=== PATIENT | female | born 1955 | race Caucasian/White ===

== ENCOUNTER → 2021-01-06 | Outpatient (CLI) | payer MEDICARE ==
[~2021-01-06] MED LIST: CLON0.5T PO; MIRT15TA3 PO; THYR60TA PO; VENL75CA6 PO
== END ==
LOC: LAB 12:11
PROVIDERS: ATTEND Nurse Anesthetist, Certified Registered
DX: Z01.812 Encounter for preprocedural laboratory examination (principal); H26.9 Unspecified cataract; Z20.822 Contact with and (suspected) exposure to COVID-19
CPT/HCPCS: U0003

== ENCOUNTER → 2021-01-09 | Day surgery (SDC) | payer MEDICARE ==
[~2021-01-09] MED LIST changes: +ACETAMINOPHEN 500 MG TABLET PO PRN; +BALANCED SALT IRRIG SOLN NO.2 500 ML IO ONE; +BENZONATATE 100 MG CAPSULE. PO PRN; +BRIMONIDINE 0.2% OPHTH SOLUTION 5ML BOTTLE. OD ONE; +CEFUROXIME OPHTH 4 MG/0.4 ML SYRINGE. OD ONE; +CHONDROIT-SOD-HYALURONATE KIT. OD ONE; +IBUPROFEN 200 MG TABLET PO PRN; +IPRATRPIUM/ALBUTEROL 0.5/2.5MG 3 ML NEBU. NEB PRN; +IV RINGERS SOLUTION,LACTATED 1,000 ML IV SCH; +LIDO/EPI IN BSS OPHTH 2.7 ML SYRINGE. OD ONE; +LIDOCAINE 2% JELLY 6ML IN APPLICATOR. ONE; +MIDAZOLAM HCL PF 2 MG/2 ML VIAL. IV ONE; +MIDAZOLAM HCL PF 2 MG/2 ML VIAL. ONE; +ONDANSETRON PF 4 MG/2 ML VIAL. IV PRN; +PHENYLEPHRINE 10% OPHTH SOLUTION 5ML BOTTLE. OD PRN; +POVIDONE-IODINE 5% OPHTH SOLUTION 30ML BOTTLE. OD ONE; +POVIDONE-IODINE 5% OPHTH SOLUTION 30ML BOTTLE. OD PRN; +PROPARACAINE 0.5% OPHTH SOLUTION 15ML BOTTLE. OD ONE; +PROPARACAINE 0.5% OPHTH SOLUTION 15ML BOTTLE. OD PRN; +prednisoLONE ACETATE 1% OPHTH SUSPENSION 5ML BOTTLE. OD ONE
[2021-01-09] MEDS: PHENYLEPHRINE 2.5% OPHTH SOLUTION 2ML BOTTLE. OD SCH ×3 (14:45→14:56)
[2021-01-09] MEDS: TROPICAMIDE 1% OPHTH SOLUTION 15ML BOTTLE. OD SCH ×3 (14:45→14:56)
[2021-01-09] MEDS: TOBRAMYCIN 0.3% OPHTH SOLUTION 5ML BOTTLE. OD SCH ×2 (14:45→14:49)
[2021-01-09] MEDS: KETOROLAC TROMETHAMINE 0.5% OPHTH SOLUTION BOTTLE. OD SCH ×2 (14:45→14:49)
--- NOTE | 2021-01-09 16:21 | PDOC4 ---
SURGEON: Yadi Prieto MD Date of Procedure: 01/09/21 PREOP Diagnosis Visually significant cataract: Right Eye OD POSTOP Diagnosis Same PROCEDURE: Phaco w/ posterior chamber IOL: Right Eye OD ANESTHESIA Deep forniceal periocular 2% Lidocaine jelly Anayeli/retro bulbar block with 2% Lidocaine with 0.5% Marcaine DESCRIPTION OF PROCEDURE The risks, benefits, and alternatives were discussed with the patient who elected to proceed. Informed consent was obtained in writing and placed in the chart After anesthetizing the eye topically, the patient was taken to the operating room, and the operative eye was prepped and draped in the usual sterile fashion for ocular surgery. A wire lid speculum was placed. A 1-mm clear corneal paracentesis incision was created with the side-port blade at a position three o'clock hours clockwise from the temporal cornea. Then, 1% non-preserved Lidocaine with epinephrine was injected into the anterior chamber followed by viscoelastic. Cotton-tipped applicators were used to stabilize the globe, and a 2.4 mm keratome was used to create a self-sealing incision in clear cornea at the temporal limbus. The Utrata forceps were used to create a continuous curvilinear capsulorrhexis. Balanced saline solution was injected via cannula beneath the capsulorrhexis edge to hydrodissect the lens nucleus and cortex from the lens capsule. The phacoemulsification handpiece and a chopping instrument were then used to remove the lens nucleus. The remaining epinuclear material and cortex were removed with the irrigation/aspiration handpiece. Vi scoelastic was used to re-inflate the lens capsule, and the intraocular lens was injected directly into the capsular bag. The corneal wound edges were hydrated with balanced salt solution on a cannula and the irrigation/aspiration handpiece was used to extract the remaining viscoelastic. Cefuroxime 0.1mg/ml / Vigamox 0.5% was injected into the anterior chamber intracamerally. The wounds were inspected and found to be watertight at an appropriate intraocular pressure. Topical antibiotic drops were placed on the corneal surface. LRI: No If Yes, Number [] [place] [] Length [] degrees Depth [] microns Incision [place]: 180 Toric Lens [place] [] Patch/shield with Maxitrol/Tobradex/Erythromycin ointment: Yes No Co-managed patients/postop examination stable for co-management with referring doctor. YADI PRIETO MD Jan 09, 2021 16:21
[2021-01-09 16:31] VITALS: BP 121/91
== END | disposition home or self-care (01) ==
LOC: SURG 14:31
PROVIDERS: ATTEND Ophthalmology
DX: H25.11 Age-related nuclear cataract, right eye (principal); F41.9 Anxiety disorder, unspecified; F32.9 Major depressive disorder, single episode, unspecified; E03.9 Hypothyroidism, unspecified; Z88.0 Allergy status to penicillin; Z91.040 Latex allergy status; Z91.041 Radiographic dye allergy status; Z72.0 Tobacco use; Z98.890 Other specified postprocedural states; Z79.899 Other long term (current) drug therapy
CPT/HCPCS: 66984; J2250; V2632

== ENCOUNTER → 2021-01-27 | Outpatient (CLI) | payer MEDICARE ==
[2021-01-09 16:31] VITALS: BP 121/91
[~2021-01-27] MED LIST changes: -ACETAMINOPHEN 500 MG TABLET PO PRN; -BALANCED SALT IRRIG SOLN NO.2 500 ML IO ONE; -BENZONATATE 100 MG CAPSULE. PO PRN; -BRIMONIDINE 0.2% OPHTH SOLUTION 5ML BOTTLE. OD ONE; -CEFUROXIME OPHTH 4 MG/0.4 ML SYRINGE. OD ONE; -CHONDROIT-SOD-HYALURONATE KIT. OD ONE; -IBUPROFEN 200 MG TABLET PO PRN; -IPRATRPIUM/ALBUTEROL 0.5/2.5MG 3 ML NEBU. NEB PRN; -IV RINGERS SOLUTION,LACTATED 1,000 ML IV SCH; -LIDO/EPI IN BSS OPHTH 2.7 ML SYRINGE. OD ONE; -LIDOCAINE 2% JELLY 6ML IN APPLICATOR. ONE; -MIDAZOLAM HCL PF 2 MG/2 ML VIAL. IV ONE; -MIDAZOLAM HCL PF 2 MG/2 ML VIAL. ONE; -ONDANSETRON PF 4 MG/2 ML VIAL. IV PRN; -PHENYLEPHRINE 10% OPHTH SOLUTION 5ML BOTTLE. OD PRN; -POVIDONE-IODINE 5% OPHTH SOLUTION 30ML BOTTLE. OD ONE; -POVIDONE-IODINE 5% OPHTH SOLUTION 30ML BOTTLE. OD PRN; -PROPARACAINE 0.5% OPHTH SOLUTION 15ML BOTTLE. OD ONE; -PROPARACAINE 0.5% OPHTH SOLUTION 15ML BOTTLE. OD PRN; -prednisoLONE ACETATE 1% OPHTH SUSPENSION 5ML BOTTLE. OD ONE
== END ==
LOC: LAB 11:00
PROVIDERS: ATTEND Nurse Anesthetist, Certified Registered
DX: Z01.812 Encounter for preprocedural laboratory examination (principal); H26.8 Other specified cataract; Z20.822 Contact with and (suspected) exposure to COVID-19
CPT/HCPCS: U0003

== ENCOUNTER → 2021-01-30 | Day surgery (SDC) | payer MEDICARE ==
[~2021-01-30] MED LIST changes: +ACETAMINOPHEN 500 MG TABLET PO PRN; +BALANCED SALT IRRIG SOLN NO.2 500 ML IO ONE; +BENZONATATE 100 MG CAPSULE. PO PRN; +BRIMONIDINE 0.2% OPHTH SOLUTION 5ML BOTTLE. OS ONE; +CEFUROXIME OPHTH 4 MG/0.4 ML SYRINGE. OS ONE; +CHONDROIT-SOD-HYALURONATE KIT. OS ONE; +IBUPROFEN 200 MG TABLET PO PRN; +IPRATRPIUM/ALBUTEROL 0.5/2.5MG 3 ML NEBU. NEB PRN; +IV RINGERS SOLUTION,LACTATED 1,000 ML IV SCH; +LIDO/EPI IN BSS OPHTH 2.7 ML SYRINGE. OS ONE; +LIDOCAINE 2% JELLY 6ML IN APPLICATOR. ONE; +MIDAZOLAM HCL PF 2 MG/2 ML VIAL. IV ONE; +ONDANSETRON PF 4 MG/2 ML VIAL. IV PRN; +PHENYLEPHRINE 10% OPHTH SOLUTION 5ML BOTTLE. OS PRN; +POVIDONE-IODINE 5% OPHTH SOLUTION 30ML BOTTLE. OS ONE; +POVIDONE-IODINE 5% OPHTH SOLUTION 30ML BOTTLE. OS PRN; +PROPARACAINE 0.5% OPHTH SOLUTION 15ML BOTTLE. OS ONE; +PROPARACAINE 0.5% OPHTH SOLUTION 15ML BOTTLE. OS PRN; +prednisoLONE ACETATE 1% OPHTH SUSPENSION 5ML BOTTLE. OS ONE
[2021-01-30] MEDS: TOBRAMYCIN 0.3% OPHTH SOLUTION 5ML BOTTLE. OS SCH ×2 (08:22→08:33)
[2021-01-30] MEDS: KETOROLAC TROMETHAMINE 0.5% OPHTH SOLUTION BOTTLE. OS SCH ×2 (08:22→08:33)
[2021-01-30] MEDS: PHENYLEPHRINE 2.5% OPHTH SOLUTION 2ML BOTTLE. OS SCH ×3 (08:22→08:36)
[2021-01-30] MEDS: TROPICAMIDE 1% OPHTH SOLUTION 15ML BOTTLE. OS SCH ×3 (08:22→08:36)
--- NOTE | 2021-01-30 09:42 | PDOC4 ---
SURGEON: Yadi Prieto MD Date of Procedure: 01/30/21 PREOP Diagnosis Visually significant cataract: Left Eye OS POSTOP Diagnosis Same PROCEDURE: Phaco w/ posterior chamber IOL: Left Eye OS ANESTHESIA Deep forniceal periocular 2% Lidocaine jelly Anayeli/retro bulbar block with 2% Lidocaine with 0.5% Marcaine DESCRIPTION OF PROCEDURE The risks, benefits, and alternatives were discussed with the patient who elected to proceed. Informed consent was obtained in writing and placed in the chart After anesthetizing the eye topically, the patient was taken to the operating room, and the operative eye was prepped and draped in the usual sterile fashion for ocular surgery. A wire lid speculum was placed. A 1-mm clear corneal paracentesis incision was created with the side-port blade at a position three o'clock hours clockwise from the temporal cornea. Then, 1% non-preserved Lidocaine with epinephrine was injected into the anterior chamber followed by viscoelastic. Cotton-tipped applicators were used to stabilize the globe, and a 2.4 mm keratome was used to create a self-sealing incision in clear cornea at the temporal limbus. The Utrata forceps were used to create a continuous curvilinear capsulorrhexis. Balanced saline solution was injected via cannula beneath the capsulorrhexis edge to hydrodissect the lens nucleus and cortex from the lens capsule. The phacoemulsification handpiece and a chopping instrument were then used to remove the lens nucleus. The remaining epinuclear material and cortex were removed with the irrigation/aspiration handpiece. Vis coelastic was used to re-inflate the lens capsule, and the intraocular lens was injected directly into the capsular bag. The corneal wound edges were hydrated with balanced salt solution on a cannula and the irrigation/aspiration handpiece was used to extract the remaining viscoelastic. Cefuroxime 0.1mg/ml / Vigamox 0.5% was injected into the anterior chamber intracamerally. The wounds were inspected and found to be watertight at an appropriate intraocular pressure. Topical antibiotic drops were placed on the corneal surface. LRI: No If Yes, Number [] [place] [] Length [] degrees Depth [] microns Incision [place]: 180 Toric Lens [place] [] Patch/shield with Maxitrol/Tobradex/Erythromycin ointment: Yes No Co-managed patients/postop examination stable for co-management with referring doctor. YADI PRIETO MD Jan 30, 2021 09:42
[2021-01-30 09:51] VITALS: BP 135/84
== END | disposition home or self-care (01) ==
LOC: SURG 08:10
PROVIDERS: ATTEND Ophthalmology
DX: H25.12 Age-related nuclear cataract, left eye (principal); F32.9 Major depressive disorder, single episode, unspecified; F41.9 Anxiety disorder, unspecified; E03.9 Hypothyroidism, unspecified; Z91.040 Latex allergy status; Z88.2 Allergy status to sulfonamides; Z88.0 Allergy status to penicillin; Z88.8 Allergy status to other drugs, medicaments and biological substances; Z79.899 Other long term (current) drug therapy; Z91.041 Radiographic dye allergy status
CPT/HCPCS: 66984; J2250; V2632

== ENCOUNTER 2021-11-09 20:41 | Emergency (ER) | payer MEDICARE ==
[~2021-11-09] VITALS: Ht 175.3 cm; Wt 82.0 kg
[~2021-11-09 20:41] MED LIST changes: -ACETAMINOPHEN 500 MG TABLET PO PRN; -BALANCED SALT IRRIG SOLN NO.2 500 ML IO ONE; -BENZONATATE 100 MG CAPSULE. PO PRN; -BRIMONIDINE 0.2% OPHTH SOLUTION 5ML BOTTLE. OS ONE; -CEFUROXIME OPHTH 4 MG/0.4 ML SYRINGE. OS ONE; -CHONDROIT-SOD-HYALURONATE KIT. OS ONE; -IBUPROFEN 200 MG TABLET PO PRN; -IPRATRPIUM/ALBUTEROL 0.5/2.5MG 3 ML NEBU. NEB PRN; -IV RINGERS SOLUTION,LACTATED 1,000 ML IV SCH; -LIDO/EPI IN BSS OPHTH 2.7 ML SYRINGE. OS ONE; -LIDOCAINE 2% JELLY 6ML IN APPLICATOR. ONE; -MIDAZOLAM HCL PF 2 MG/2 ML VIAL. IV ONE; +MIRT-7 PO; -MIRT15TA3 PO; -ONDANSETRON PF 4 MG/2 ML VIAL. IV PRN; -PHENYLEPHRINE 10% OPHTH SOLUTION 5ML BOTTLE. OS PRN; -POVIDONE-IODINE 5% OPHTH SOLUTION 30ML BOTTLE. OS ONE; -POVIDONE-IODINE 5% OPHTH SOLUTION 30ML BOTTLE. OS PRN; -PROPARACAINE 0.5% OPHTH SOLUTION 15ML BOTTLE. OS ONE; -PROPARACAINE 0.5% OPHTH SOLUTION 15ML BOTTLE. OS PRN; -prednisoLONE ACETATE 1% OPHTH SUSPENSION 5ML BOTTLE. OS ONE
[2021-11-09] MEDS ORDERED: ONDANSETRON PF 4 MG/2 ML VIAL. IVP ONE (21:30)
[2021-11-09] MEDS ORDERED: MORPHINE SULFATE 4 MG/ML DISP.SYRIN. IV ONE ×2 (21:30→23:00)
[2021-11-09] MEDS ORDERED: IV NORMAL SALINE 1,000ML 1,000 ML IV ONE (21:30)
--- NOTE | 2021-11-09 21:32 | PHYS DOC ---
Past History Additional Past Medical Histor: PTSD Past Surgical History: Appendectomy, Other Additional Past Surgical Histo: Lymph node remoal Alcohol Use: None General Adult EDM: Chief Complaint: ABDOMINAL PAIN HPI: HPI: 65-year-old female presents with abdominal bloating and right-sided abdominal pain. She states that she has not had a good bowel movement in several days. She does not have a history of constipation. She presents tonight because siet-blt-[id number] medicines have not helped and she feels very bloated. She has right-sided abdominal pain. She describes the pain as a pressure and cramping sensation of moderate intensity. Denies dysuria or increased urinary frequency. Denies fever or chills. Review of Systems: Review of Systems: Constitutional: Denies fever or chills Eyes: Denies change in visual acuity HENT: Denies nasal congestion or sore throat Respiratory: Denies cough or shortness of breath Cardiovascular: Denies chest pain or edema GI: Right sided abdominal pain, nausea, constipation. : Denies dysuria Musculoskeletal: Denies back pain or joint pain Integument: Denies rash Neurologic: Denies headache, focal weakness or sensory changes Endocrine: Denies polyuria or polydipsia Lymphatic: Denies swollen glands Psychiatric: Denies depression or anxiety Current Medications: Current Meds: Current Medications Medications (Trade) Dose Ordered Sig/[facility] Start Time Stop Time Status Last Admin Dose Admin Morphine Sulfate (Morphine 4mg Syringe) 4 mg 1X ONCE 11/09/21 21:30 11/09/21 21:31 Ondansetron HCl (Zofran) 4 mg 1X ONCE 11/09/21 21:30 11/09/21 21:31 Sodium Chloride 1,000 ml @ 1,000 mls/hr 1X ONCE 11/09/21 21:30 11/09/21 22:29 Allergies: Allergies: Allergies Coded Allergies Type Severity Reaction Last Updated Verified Iodinated Contrast Media Allergy Intermediate 11/09/21 Yes Penicillins Allergy Intermediate Hives 11/09/21 Yes Sulfa (Sulfonamide Antibiotics) Allergy Intermediate hives 11/09/21 Yes aluminum Allergy Intermediate 11/09/21 Yes copper Allergy Intermediate 11/09/21 Yes gold Au 198 Allergy Intermediate 11/09/21 Yes latex Allergy Intermediate 11/09/21 Yes nickel Allergy Intermediate 11/09/21 Yes silver Allergy Intermediate 11/09/21 Yes Uncoded Allergies Type Severity Reaction Last Updated Verified PLASTIC Allergy Unknown 01/09/21 Physical Exam: PE: Constitutional: Well developed, well nourished, no acute distress, non-toxic appearance. [] HENT: Normocephalic, atraumatic, bilateral external ears normal, oropharynx moist, no oral exudates, nose normal. [] Eyes: PERRLA, EOMI, conjunctiva normal, no discharge. [] Neck: Normal range of motion, no tenderness, supple, no stridor. [] Cardiovascular:Heart rate regular rhythm, no murmur [] Lungs & Thorax: Bilateral breath sounds clear to auscultation [] Abdomen: Bowel sounds normal, soft, distended, right sided tenderness, no masses, no pulsatile masses. [] Skin: Warm, dry, no erythema, no rash. [] Back: No tenderness, no CVA tenderness. [] Extremities: No tenderness, no cyanosis, no clubbing, ROM intact, no edema. [] Neurologic: Alert and oriented X 3, normal motor function, normal sensory fu nction, no focal deficits noted. [] Psychologic: Affect normal, judgement normal, mood normal. [] Current Patient Data: Vital Signs: Vital Signs Date Time Temp Pulse Resp B/P (MAP) Pulse Ox O2 Delivery O2 Flow Rate FiO2 11/09/21 21:00 98.7 94 18 166/79 (108) 96 Room Air EKG: EKG: [] Radiology/Procedures: Radiology/Procedures: [] Impressions: EXAMINATION: CT abdomen and pelvis without IV contrast. INDICATION:65 years, Female, constipation, right lower quadrant pain. TECHNIQUE: Axial CT images of the abdomen and pelvis were obtained. Coronal and sagittal reformatted performed. COMPARISON: None. Exposure: One or more of the following individualized dose reduction techniques were utilized for this examination: 1. Automated exposure control 2. Adjustment of the mA and/or kV according to patient size 3. Use of iterative reconstruction technique. FINDINGS: LOWER CHEST: Lung bases are clear. There is scattered subsegmental atelectasis in the lingula and right middle lobe. ABDOMEN/PELVIS: Liver is unremarkable. Large cholelithiasis with no evidence of acute cholecystitis. No biliary duct dilation. The spleen adrenals, and pancreas are unremarkable. There is a associated splenule in the splenic hilum. Kidneys are normal in appearance no nephrolithiasis or hydronephrosis. Stomach is unremarkable. No evidence of bowel obstruction or focal inflammation. Colonic diverticulosis without diverticulitis. Mild colonic stool burden. The appendix is not visualized. No free intra-abdominal air or free fluid. There is a enlarged racheal hepatis lymph node measuring 1.5 cm in short axis of indeterminate significance. There are no additional pathologically enlarged abdominal or pelvic lymph nodes. Vasculature is without aneurysmal dilation. Urinary bladder is normal. Normal appearing uterus is present. The left ovary measures 3.3 x 3.6 cm and is attenuation of simple fluid there is no definite peripheral nodularity. The right adnexa is unremarkable. MUSCULOSKELETAL: No evidence of acute fracture or suspicious osseous abnormality. IMPRESSION: 1. No evidence of acute abnormality to correlate with patient's pain. Mild c olonic stool burden with no evidence of constipation. 2. Indeterminate enlarged racheal hepatis lymph node, may be reactive. Correlation with prior imaging if available otherwise follow-up CT in 6 months. 3. Cholelithiasis without evidence of acute cholecystitis. 4. Left ovarian cyst measuring up to 3.6 cm this is almost certainly benign correlation with prior imaging if available. If none is available follow-up with ultrasound and/or CT in 6 months. Electronically signed by: Ulysses Saldivar DO (11/09/2021 9:53 PM) [facility] DICTATED AND SIGNED BY: ULYSSES SALDIVAR DO DATE: 11/09/212142 CC: ABRAHAM LEHMAN DO; YUSEF ARCHIBALD MD ~MTH0 0 Heart Score: C/O Chest Pain: N/A Risk Factors: Risk Factors: DM, Current or recent (<one month) smoker, HTN, HLP, family history of CAD, obesity. Risk Scores: Score 0 - 3: 2.5% MACE over next 6 weeks - Discharge Home Score 4 - 6: 20.3% MACE over next 6 weeks - Admit for Clinical Observation Score 7 - 10: 72.7% MACE over next 6 weeks - Early Invasive Strategies Course & Med Decision Making: Course & Med Decision Making Pertinent Labs and Imaging studies reviewed. (See chart for details) Patient's labs are unremarkable. Her CT scan shows a large stones in the gallbladder. See official read for more details. This is likely the source for her pain. I will give the patient additional pain medication in the emergency room. I will discharge her with [place] prescription for home. The patient will follow up with her primary physician tomorrow and get a referral for a surgeon. She is stable for discharge at this time. [] Kaye Disclaimer: Kaye Disclaimer: This electronic medical record was generated, in whole or in part, using a voice recognition dictation system. Departure Departure: Impression: Primary Impression: Cholelithiasis Disposition: HOME / SELF CARE / HOMELESS Condition: STABLE Referrals: YUSEF ARCHIBALD MD (PCP) Patient Instructions: Cholelithiasis, [facility] Script[facility] Hydrocodone Bit/Acetaminophen (HYDROCODONE-APAP 7.5-325 ) 1 Each Tablet 1 TAB PO PRN Q6HRS PRN for PAIN, #20 TAB 0 Refills Prov: ABRAHAM LEHMAN DO 11/09/21 ABRAHAM LEHMAN DO Nov 09, 2021 21:32
--- NOTE | 2021-11-09 21:55 | RAD ---
EXAMINATION: CT abdomen and pelvis without IV contrast. INDICATION:65 years, Female, constipation, right lower quadrant pain. TECHNIQUE: Axial CT images of the abdomen and pelvis were obtained. Coronal and sagittal reformatted performed. COMPARISON: None. Exposure: One or more of the following individualized dose reduction techniques were utilized for thi s examination: 1. Automated exposure control 2. Adjustment of the mA and/or kV according to patient size 3. Use of iterative reconstruction technique. FINDINGS: LOWER CHEST: Lung bases are clear. There is scattered subsegmental atelectasis in the lingula and right middle lob e. ABDOMEN/PELVIS: Liver is unremarkable. Large cholelithiasis with no evidence of acute cholecystitis. No biliary duct dilation. The spleen adrenals, and pancreas are unremarkable. There is a associated splenule in the s plenic hilum. Kidneys are normal in appearance no nephrolithiasis or hydronephrosis. Stomach is unrem arkable. No evidence of bowel obstruction or focal inflammation. Colonic diverticulosis without diver ticulitis. Mild colonic stool burden. The appendix is not visualized. No free intra-abdominal air or free fluid. There is a enlarged racheal hepatis lymph node measuring 1.5 cm in short axis of indeterminate signific ance. There are no additional pathologically enlarged abdominal or pelvic lymph nodes. Vasculature is without aneurysmal dilation. Urinary bladder is normal. Normal appearing uterus is present. The left ovary measures 3.3 x 3.6 cm a nd is attenuation of simple fluid there is no definite peripheral nodularity. The right adnexa is unr emarkable. MUSCULOSKELETAL: No evidence of acute fracture or suspicious osseous abnormality. IMPRESSION: 1. No evidence of acute abnormality to correlate with patient's pain. Mild colonic stool burden with no evidence of constipation. 2. Indeterminate enlarged racheal hepatis lymph node, may be reactive. Correlation with prior imaging i f available otherwise follow-up CT in 6 months. 3. Cholelithiasis without evidence of acute cholecystitis. 4. Left ovarian cyst measuring up to 3.6 cm this is almost certainly benign correlation with prior im aging if available. If none is available follow-up with ultrasound and/or CT in 6 months. Electronically signed by: William Jones DO (11/09/2021 9:53 PM) [facility]
[2021-11-09 22:06] LABS: BASO # 0.1 x10^3/uL (0.0-0.2); BASO % 1 % (0-3); EOS # 0.1 x10^3/uL (0.0-0.7); EOS % 1 % (0-3); HEMATOCRIT 44.1 % (36.0-47.0); HEMOGLOBIN 14.9 g/dL (12.0-15.5); LYMPH # 2.5 x10^3/uL (1.0-4.8); LYMPH % 29 % (24-48); MEAN CORPUSCULAR HEMOGLOBIN 29 pg (25-35); MEAN CORPUSCULAR HGB CONC 34 g/dL (31-37); MEAN CORPUSCULAR VOLUME 87 fL (79-100); MONO # 0.7 x10^3/uL (0.0-1.1); MONO % 9 % (0-9); NEUT # 5.2 x10^3uL (1.8-7.7); NEUT % 60 % (31-73); PLATELET COUNT 195 x10^3/uL (140-400); RED BLOOD COUNT 5.06 x10^6/uL (3.50-5.40); RED CELL DISTRIBUTION WIDTH 12.7 % (11.5-14.5); WHITE BLOOD COUNT 8.6 x10^3/uL (4.0-11.0)
[2021-11-09 22:14] LABS: CALCIUM 8.1 mg/dL (8.5-10.1); CREATININE 0.7 mg/dL (0.6-1.0); POTASSIUM 3.7 mmol/L (3.5-5.1)
[2021-11-09 22:20] LABS: ALBUMIN 3.5 g/dL (3.4-5.0); ALBUMIN/GLOBULIN RATIO 1.1 (1.0-1.7); TOTAL BILIRUBIN 0.6 mg/dL (0.2-1.0); TOTAL PROTEIN 6.7 g/dL (6.4-8.2)
[2021-11-09] MEDS ORDERED: HYDR-2765 PO (22:47)
[2021-11-09 22:50] VITALS: BP 158/74
[2021-11-09] MEDS ORDERED: HYDROcodone/APAP 7.5/325MG 1 TAB TABLET PO ONE (23:00)
[2021-11-09 23:04] LABS: BACTERIA,URINE FEW /HPF (0-FEW); BILIRUBIN,URINE NEG (NEG); CLARITY,URINE CLEAR; COLOR,URINE YELLOW; GLUCOSE,URINE NEG (NEG); NITRITE,URINE NEG (NEG); SQUAMOUS EPITHELIAL CELL,UR OCC /LPF; UROBILINOGEN,URINE 0.2 mg/dL (0.2 mg/dL); WBC,URINE 0 /HPF (0-4)
== END 2021-11-09 22:58 | disposition home or self-care (01) ==
LOC: ER 20:41
DX: K80.20 Calculus of gallbladder without cholecystitis without obstruction (principal); K59.00 Constipation, unspecified; Z90.89 Acquired absence of other organs; Z91.041 Radiographic dye allergy status; Z88.0 Allergy status to penicillin; Z88.2 Allergy status to sulfonamides; Z88.8 Allergy status to other drugs, medicaments and biological substances; Z91.040 Latex allergy status
CPT/HCPCS: 36415; 74176; 80053; 81001; 85025; 96361; 96374; 96376; 99284; J2270; J7030